=== PATIENT | female | born 1945 | race Caucasian/White ===

== ENCOUNTER 2021-05-13 16:59 | Emergency (ER) | payer OTHER ==
[2021-05-13 17:32] VITALS: TEMP 98.2; BMI 23.0
[2021-05-13 19:36] VITALS: BP 128/63; PULSE 55
[2021-05-13 19:40] LABS: BASO % 1.2 % (0-2.0); EOS % 0.7 % (0-4.5); HEMATOCRIT 35.7 % (32.4-45.2); HEMOGLOBIN 12.3 GM/dL (10.7-15.3); LYMPH % 39.6 % (8-40); MCHC 34.4 g/dl (32.0-36.0); MEAN CELL VOLUME 95.8 fl (80-96); MEAN PLT VOLUME 9.5 fl (7.5-11.1); MONO % 9.7 % (3.8-10.2); NEUT % 48.8 % (42.8-82.8); PLATELET COUNT 306 10^3/uL (134-434); RBC 3.72 M/mm3 (3.60-5.2); RDW 14.1 % (11.6-15.6); WHITE BLOOD COUNT 9.2 K/mm3 (4.0-10.0)
[2021-05-13 19:57] LABS: CHLORIDE 106 mmol/L (98-107); SODIUM 139 mmol/L (136-145)
[2021-05-13 20:23] LABS: BLOOD UREA NITROGEN 19.1 mg/dL (7-18); CALCIUM 9.2 mg/dL (8.5-10.1); CO2 26 mmol/L (21-32)
[2021-05-13 20:24] LABS: ALBUMIN 3.9 g/dl (3.4-5.0); GLUCOSE,RANDOM 98 mg/dL (74-106); MAGNESIUM 2.5 mg/dL (1.8-2.4)
[2021-05-13 20:26] LABS: CREATININE 1.3 mg/dL (0.55-1.3); PHOSPHOROUS 3.6 mg/dL (2.5-4.9); SGOT/AST 23 U/L (15-37); SGPT/ALT 24 U/L (13-61)
[2021-05-13 20:29] LABS: ALK PHOS 52 U/L (45-117)
[2021-05-13 20:32] LABS: N-TERMINAL BNP 109.6 pg/ml (5-125)
[2021-05-13 20:39] LABS: ANION GAP 7 MMOL/L (8-16); BILIRUBIN,TOTAL 0.3 mg/dL (0.2-1)
== END 2021-05-13 21:15 | disposition home or self-care (01) ==
LOC: JER 16:59
DX: R07.9 Chest pain, unspecified (principal)
CPT/HCPCS: 36415; 71045-TC-FY; 80053; 82550; 82553; 83735; 83880; 84100; 84484; 85025; 93005; 93010; 99284-25

== ENCOUNTER 2024-07-15 07:43 | Emergency (ER) | payer OTHER ==
[2024-07-15 07:51] VITALS: TEMP 98.1; BMI 23.1
[2024-07-15] MEDS ORDERED: LIDOCAINE 5% TOPICAL PATCH ONE (09:04)
[2024-07-15] MEDS ORDERED: ACETAMINOPHEN INJECTION 100 ML ONE (09:04)
[2024-07-15] MEDS: LIDOCAINE 5% TOPICAL PATCH TP ONE (09:25)
[2024-07-15 09:32] LABS: BASO % 0.9 % (0-2.0); EOS % 0.5 % (0-4.5); HEMATOCRIT 37.8 % (32.4-45.2); HEMOGLOBIN 12.7 GM/dL (10.7-15.3); MCHC 33.7 g/dl (32.0-36.0); MEAN PLT VOLUME 9.9 fl (7.5-11.1); MONO % 6.2 % (3.8-10.2); NEUT % 75.4 % (42.8-82.8); PLATELET COUNT 327 10^3/uL (134-434); RBC 3.98 M/mm3 (3.60-5.2); RDW 14.5 % (11.6-15.6)
[2024-07-15] MEDS: ACETAMINOPHEN 1000 MG/100 ML BAG IVPB ONE (09:35)
[2024-07-15 09:43] LABS: EPI CELLS 5 /uL (0-25.1); HYALINE CASTS 0 /uL (0-3.1); PH,URINE 6.5 (5.0-8.0); URINE APPEARANCE CLOUDY; URINE BACTERIA 6 /uL (0-1359); URINE BILIRUBIN NEGATIVE (NEGATIVE); URINE COLOR YELLOW; URINE GLUCOSE (UA) NEGATIVE (NEGATIVE); URINE KETONE NEGATIVE (NEGATIVE); URINE LEUK ESTERASE NEGATIVE (NEGATIVE); URINE NITRITE NEGATIVE (NEGATIVE); URINE PROTEIN NEGATIVE (NEGATIVE); URINE RBC 24 /uL (0-23.9); URINE UROBILINOGEN 0.2 mg/dL (0.2-1.0); URINE WBC 2 /uL (0-25.8)
[2024-07-15 09:59] LABS: POTASSIUM 4.3 mmol/L (3.5-5.1)
[2024-07-15 10:01] LABS: ALBUMIN 3.8 g/dl (3.4-5.0); BLOOD UREA NITROGEN 18.9 mg/dL (7-18); CALCIUM 9.3 mg/dL (8.5-10.1)
[2024-07-15 10:06] LABS: CREATININE 1.1 mg/dL (0.55-1.3)
[2024-07-15 10:07] LABS: BILIRUBIN,TOTAL 0.3 mg/dL (0.2-1); TOT PROT 7.4 g/dl (6.4-8.2)
[2024-07-15 10:10] LABS: N-TERMINAL BNP 105.4 pg/ml (5-450)
[2024-07-15] MEDS ORDERED: KETOROLAC TROMETHAMINE 15 MG/ML VIAL ONE (10:56)
[2024-07-15] MEDS: KETOROLAC TROMETHAMINE 15 MG/ML VIAL IVPUSH ONE (11:08)
[2024-07-15 12:09] VITALS: BP 115/45; PULSE 63; RESP 17
[2024-07-15] MEDS: morphine SULFATE 4 MG/ML VIAL IVPUSH ONE (12:09)
[2024-07-15] MEDS ORDERED: LIDOCAINE PATCH REMOVAL MC SCH (22:00)
== END 2024-07-15 12:24 | disposition home or self-care (01) ==
LOC: JER 07:43
PROC: 3E033NZ Introduction of Analgesics, Hypnotics, Sedatives into Peripheral Vein, Percutaneous Approach (ICD-10-PCS; principal; 2024-07-15)
PROC: 3E0333Z Introduction of Anti-inflammatory into Peripheral Vein, Percutaneous Approach (ICD-10-PCS; 2024-07-15)
DX: M54.50 Low back pain, unspecified (principal); G89.29 Other chronic pain; R06.02 Shortness of breath; Z20.822 Contact with and (suspected) exposure to COVID-19
CPT/HCPCS: 0241U-QW; 36415; 71046-TC-FY; 74176-TC; 80053; 81003; 83880; 84484; 85025; 87086; 93005; 93010; 96374; 96375; 99285-25; J0131

== ENCOUNTER 2025-03-04 08:33 | Day surgery (SDC) | payer OTHER ==
[2025-03-04 10:10] LABS: POTASSIUM 5.2 mmol/L (3.5-5.1)
[2025-03-04 10:13] LABS: ALBUMIN 4.2 g/dl (3.4-5.0); BLOOD UREA NITROGEN 19.3 mg/dL (7-18)
[2025-03-04 10:14] LABS: CALCIUM 10.4 mg/dL (8.5-10.1)
[2025-03-04 10:17] LABS: BILIRUBIN,TOTAL 0.4 mg/dL (0.2-1); TOT PROT 7.9 g/dl (6.4-8.2)
[2025-03-04] MEDS: ZOLEDRONIC ACID/MAN/WATER 5 MG/100 ML INFUS..BTL IVPB ONE (11:08)
[2025-03-04 12:42] VITALS: RESP 20; TEMP 98
[2025-03-04 12:52] VITALS: BP 120/56; PULSE 55
== END 2025-03-04 11:40 | disposition home or self-care (01) ==
LOC: JINFUSION 08:33 → J7W 08:35 → JINFUSION 11:40
PROVIDERS: ATTEND Internal Medicine
PROC: 3E033GC Introduction of Other Therapeutic Substance into Peripheral Vein, Percutaneous Approach (ICD-10-PCS; principal; 2025-03-04)
DX: M81.0 Age-related osteoporosis without current pathological fracture (principal)
CPT/HCPCS: 36415; 80053; 96365; J3489

== ENCOUNTER 2025-04-14 08:23 | Inpatient (IN) | payer OTHER ==
[2025-04-14] MEDS ORDERED: ACETAMINOPHEN INJECTION 100 ML ONE (09:02)
[2025-04-14] MEDS: ACETAMINOPHEN 1000 MG/100 ML BAG IVPB ONE (09:17)
[2025-04-14] MEDS: LACTATED RINGERS SOLUTION 1000 ML INFUS.BAG IV ONE ×2 (09:18→12:25)
[2025-04-14 09:31] LABS: MCHC 33.8 g/dl (32.2-35.5); MEAN CELL VOLUME 93.1 fl (79.4-94.8); MEAN PLT VOLUME 10.9 fl (9.4-12.3); RDW 14.1 % (12.4-16.6)
[2025-04-14 09:39] LABS: INR 1.15 (0.83-1.09); PROTHROMBIN TIME (PATIENT) 12.5 SEC (9.7-13.0)
[2025-04-14 09:41] LABS: ACTIVATED PTT 32.8 SECONDS (25.2-36.5)
[2025-04-14 09:55] LABS: CO2 28 mmol/L (21-32); GLUCOSE,RANDOM 173 mg/dL (74-106)
[2025-04-14 09:57] LABS: SGPT/ALT 18 U/L (13-61)
[2025-04-14 09:58] LABS: CREATININE 1.0 mg/dL (0.55-1.3); SGOT/AST 16 U/L (15-37)
[2025-04-14 09:59] LABS: TOT PROT 7.5 g/dl (6.4-8.2)
[2025-04-14] MEDS ORDERED: LIDOCAINE 5% TOPICAL PATCH ONE (09:59)
[2025-04-14 10:00] LABS: ALK PHOS 69 U/L (45-117)
[2025-04-14] MEDS: LIDOCAINE 5% TOPICAL PATCH TP ONE (10:06)
[2025-04-14 12:03] LABS: HCV DIAGNOSTIC IN-HOUSE W/RFLX NON-REACTIVE (NONREACTIVE)
[2025-04-14 12:37] LABS: EPI CELLS 4 /uL (0-25.1); HYALINE CASTS 0 /uL (0-3.1); URINE APPEARANCE CLEAR; URINE BACTERIA 11 /uL (0-1359); URINE BILIRUBIN NEGATIVE (NEGATIVE); URINE COLOR YELLOW; URINE GLUCOSE (UA) NEGATIVE (NEGATIVE); URINE KETONE NEGATIVE (NEGATIVE); URINE LEUK ESTERASE NEGATIVE (NEGATIVE); URINE NITRITE NEGATIVE (NEGATIVE); URINE PROTEIN 1+ (NEGATIVE); URINE RBC 50 /uL (0-23.9); URINE UROBILINOGEN 0.2 mg/dL (0.2-1.0); URINE WBC 5 /uL (0-25.8)
[2025-04-14] MEDS ORDERED: KETOROLAC TROMETHAMINE 15 MG/ML VIAL ONE (12:37)
[2025-04-14] MEDS: KETOROLAC TROMETHAMINE 15 MG/ML VIAL IVPUSH ONE (12:48)
[2025-04-14 15:59] VITALS: BMI 20.9
[2025-04-14 16:45] LABS: HIV INTERPRETATION PRESUMPTIVE POSITIVE (NEGATIVE)
[2025-04-14] MEDS: ACETAMINOPHEN 325 MG TABLET (FP) PO PRN (20:49)
[2025-04-14] MEDS: LIDOCAINE PATCH REMOVAL MC ONE (22:25)
[2025-04-14] MEDS: HEPARIN NA (PORCINE) 5,000 UNITS/ML 1ML VIAL SQ SCH (22:25)
[2025-04-15 06:45] LABS: ABSOLUTE IMMATURE GRANULOCYTES 0.04 x10^3/uL (0.0-0.031); BASOPHILS # 0.08 x10^3/uL (0.01-0.08); EOSINOPHIL % 0.9 % (0.7-5.8); EOSINOPHILS # 0.09 x10^3/uL (0.04-0.36); MCHC 32.4 g/dl (32.2-35.5); MEAN CELL VOLUME 94.4 fl (79.4-94.8); MEAN PLT VOLUME 11.6 fl (9.4-12.3); MONOCYTE # 1.01 x10^3/uL (0.24-0.86); MONOCYTE % 10.5 % (4.7-12.5); RDW 14.1 % (12.4-16.6)
[2025-04-15 08:09] LABS: ALK PHOS 54.0 U/L (45-117)
[2025-04-15 08:39] LABS: CO2 31.0 mmol/L (21-32); CREATININE 0.9 mg/dL (0.55-1.3); GLUCOSE,RANDOM 127.0 mg/dL (74-106); SGOT/AST 21.0 U/L (15-37); SGPT/ALT 22.0 U/L (13-61); TOT PROT 5.8 g/dl (6.4-8.2)
[2025-04-15] MEDS: LIDOCAINE 4% PATCH TP SCH (10:58)
[2025-04-15 13:19] VITALS: BP 114/53; PULSE 60; RESP 16; TEMP 98.3
[2025-04-15] MEDS ORDERED: LIDOCAINE PATCH REMOVAL MC SCH (22:00)
[2025-04-16 02:14] LABS: LDL CHOLESTEROL (ONLY SJRH) 124.0 mg/dL (5-100)
[2025-04-16 02:16] LABS: N-TERMINAL BNP 223.5 pg/ml (5-450)
== END 2025-04-15 17:39 | disposition home or self-care (01) | DRG 312 ==
LOC: JER 08:23 → JERBED 13:46 → J4W 14:29 → OBSVTOIN 15:56
PROVIDERS: ADMIT Internal Medicine; ATTEND Internal Medicine
DX: R55 Syncope and collapse (principal); M48.56XA Collapsed vertebra, not elsewhere classified, lumbar region, initial encounter for fracture; M54.9 Dorsalgia, unspecified; M54.2 Cervicalgia; M47.896 Other spondylosis, lumbar region; D72.829 Elevated white blood cell count, unspecified
CPT/HCPCS: 36415; 70450-TC; 70498-TC; 71045-TC-FY; 72125-TC; 80053; 80061; 81003; 83036; 83735; 83880; 84439; 84443; 84484; 85025; 85610; 85730; 86803; 86850; 86900; 86901; 87040; 87086; 87389; 87536; 87637-QW; 93005; 93010; 93306-TC; 97116-GP; 97161-GP; 99285-25; G0378; Q9967